=== PATIENT | female | born 1985 | race Caucasian/White ===

== ENCOUNTER 2017-02-12 09:31 | Inpatient (IN) | payer OTHER ==
[2017-02-12] MEDS ORDERED: OXYTOCIN/RINGERS LACTATE 1,000 ML IV PRN (09:39)
[2017-02-12] MEDS ORDERED: EPSOM SALT 454 GM TP PRN (09:39)
[2017-02-12] MEDS ORDERED: TERBUTALINE SULFATE 1 MG/ML VIAL IV PRN (09:39)
[2017-02-12] MEDS ORDERED: LR 1,000 ML IV PRN (09:39)
[2017-02-12] MEDS ORDERED: OLIVE OIL 118 ML BTL MISC PRN (09:39)
[2017-02-12] MEDS ORDERED: AMMONIA AROMATIC 1 EACH AMP IH ONE (09:50)
[2017-02-12] MEDS ORDERED: TERBUTALINE SULFATE 1 MG/ML VIAL ONE (09:50)
[2017-02-12] MEDS ORDERED: LIDOCAINE 1% 300 MG/30 ML SDV ONE (09:50)
[2017-02-12] MEDS ORDERED: OLIVE OIL 118 ML BTL ONE (09:50)
[2017-02-12] MEDS ORDERED: OXYTOCIN 10 UNIT/ML VIAL ONE (09:50)
[2017-02-12] MEDS ORDERED: MISOPROSTOL 200 MCG TAB ONE (09:51)
[2017-02-12] MEDS ORDERED: OXYTOCIN 20 UNIT in LR 1,000 ML IV SCH (10:00)
[2017-02-12 10:21] LABS: % IMMATURE GRANULYOCYTES 0.6 % (0.0-1.1); ABSOLUTE IMMATURE GRANULOCYTES 0.08 10^3/uL (0.00-0.10); ADD DIFF? NO; ADD MORPH? NO; ADD SCAN? NO; ATYPICAL LYMPHOCYTE FLAG 0 (0-99); FRAGMENT RBC FLAG 0 (0-99); HEMATOCRIT 38.9 % (38.0-47.0); HEMOGLOBIN 13.9 g/dL (12.6-16.3); LEFT SHIFT FLG 0 (0-99); LIPEMIA HEMOLYSIS FLAG 90 (0-99); MEAN CELL HEMOGLOBIN 31.3 pg (27.9-34.1); MEAN CELL HEMOGLOBIN CONCENTR. 35.7 g/dL (32.4-36.7); MEAN CELL VOLUME 87.6 fL (81.5-99.8); MEAN PLATELET VOLUME 10.8 fL (8.7-11.7); PLATELET CLUMPS FLAG 10 (0-99); PLATELET COUNT 167 10^3/uL (150-400); RED BLOOD CELL COUNT 4.44 10^6/uL (4.18-5.33); RED CELL DISTRIBUTION WIDTH 13.2 % (11.5-15.2)
--- NOTE | 2017-02-12 11:09 | GHP ---
[f rep st] PREOP HISTORY AND PHYSICAL DATE OF ADMISSION: 02/12/2017 ADMITTING DIAGNOSIS: Intrauterine at 40-4/7 weeks' gestation with active labor. HISTORY OF PRESENT ILLNESS: The patient is a 31-year-old, 1 para 0, with a last menstrual period of 05/04/2016 and an EDC of 02/08/2017, which was set by a 1st trimester ultrasound. She has had good care at [facility] since transfer at 17 weeks and has had normal course. Her risk factors include Rh negative (she is status post RhoGAM), and she has a penicillin allergy that causes hives. She has had normal ultrasounds in this and normal labs in this , and she has progressed to 40-4/7 weeks' gestation. On the evening of the , the patient began having contractions which were increasing in strength and frequency. The morning of the , they became 5 minutes apart and more intense. She presented to labor and delivery and had spontaneous rupture of the membranes at 9:30 for moderate meconium, and she has continued to have regular and strong contractions. On evaluation, heart tones are in the 140s and reactive, moderate variability , category 1. She is dawson every 2-3 minutes. Her cervix is 5, 90% and 0 station, and she is grossly ruptured for moderate meconium. She is going to be admitted in active labor and desires an epidural for pain control. OBSTETRICAL HISTORY: Patient has no past obstetrical history, this is her 1st baby. PAST GYNECOLOGICAL HISTORY: Menarche at 14, every 28 days, length of 4 days. She lists a normal regular last menstrual period as 05/04/2016. She had 1 abnormal Pap years ago and had colpo that was negative; no other treatments on her cervix. She has had oral contraceptive pills and NuvaRing; no other difficulties with contraception. She has no significant past medical history or surgical history. ALLERGIES: Penicillin that causes hives. MEDICATIONS: Include vitamins and DHA. Her most recent hematocrit was 36. She is not anemic. LABORATORY DATA: O negative, antibody negative, RPR nonreactive, rubella immune , hepatitis negative, HIV negative. Cystic fibrosis, SMA, and fragile X negative. Pap normal. Gonorrhea and chlamydia normal. 1-hour GTT 86. GBS was negative. SOCIAL HISTORY: She is . She lives with her . She works in advertising. She denies tobacco, alcohol, and drug use. FAMILY HISTORY: Paternal grandmother had a DVT. Maternal grandfather had adult -onset diabetes. Paternal grandmother had breast cancer. Paternal aunt had breast cancer, as well. Paternal grandfather has Alzheimer's. PHYSICAL EXAMINATION: She is currently afebrile. Vital signs stable. heart tones are 140s, reactive, with moderate variability, category 1. She is dawson every 3-4 minutes. Again, cervix is 5, 90%, 0 station. She is grossly ruptured for moderate meconium. ASSESSMENT AND PLAN: 31-year-old, 1 para 0, at 40-4/7 weeks' gestation in active labor. Patient is admitted for active labor management, and she will get an epidural for pain control. /[id number]/MODL MTDD
[2017-02-12] MEDS ORDERED: PHENYLEPHRINE HCL 100 MCG/ML SYR ONE (11:11)
[2017-02-12] MEDS ORDERED: fentaNYL 2MCG/ML/BUP 0.1% RTU 100 ML BAG EP ONE (11:11)
--- NOTE | 2017-02-12 11:21 | PDANEPAE ---
ANE History of Present Illness 31 yo female at 40+4 in active labor desiring epidural pain control. ANE Past Medical History - Cardiovascular History Hx Hypertension: No Hx Arrhythmias: No Hx Coronary Artery / Peripheral Vascular Disease: No - Pulmonary History Hx COPD: No Hx Asthma/Reactive Airway Disease: Yes Hx Oxygen in Use at Home: No Hx Sleep Apnea: No - Neurologic History Hx Cerebrovascular Accident: No Hx Seizures: No - Endocrine History Hx Diabetes: No - Renal History Hx Renal Disorders: No - Liver History Hx Hepatic Disorders: No ANE Review of Systems Review of Systems: - Exercise capacity METS (RN): 4 METS ANE Patient History - Allergies Allergies/Adverse Reactions: Penicillins Allergy (Verified 02/12/17 09:39) - Home Medications Home medications: home medication list seen and reviewed - NPO status NPO Since - Liquids (Date): 02/12/17 NPO Since - Liquids (Time): 11:15 NPO Since - Solids (Date): 02/12/17 NPO Since - Solids (Time): 08:30 - Anes Hx Anes Hx: no prior problems - Smoking Hx Marijuana use: No - Alcohol Use Alcohol Use: None ANE Labs/Vital Signs - Labs Result Diagrams: 02/12/17 10:12 - Vital Signs Vital Signs: reviewed preoperatively; see RN documention for details Height: 167.64 cm Weight: 76.657 kg ANE Physical Exam - ASA Status ASA Status: II ANE Anesthesia Plan Anesthesia Plan: epidural Urgent/Emergent Case: Anes eval completed preop but documented later for safe timely pt care (Pt felt intense need to push during interview. Re-checked cervix , 8 cm. Proceeding with epidural, pt continued to feel the need to push. Re- checked cervix again, complete and fetus . Stopped epidural procedure and delivered baby.)
[2017-02-12] MEDS ORDERED: ACETAMINOPHEN 325 MG TAB PO PRN (11:58)
[2017-02-12] MEDS ORDERED: HYDROCORTISONE 0.5% CREAM TP PRN (11:58)
[2017-02-12] MEDS ORDERED: DOCUSATE SODIUM 100 MG CAP PO PRN (11:58)
[2017-02-12] MEDS ORDERED: HYDROCODONE/APAP 5/325 TAB PO PRN (11:58)
[2017-02-12] MEDS ORDERED: SIMETHICONE 80 MG TAB CHEW PO PRN (11:58)
--- NOTE | 2017-02-12 12:07 | OBDEL ---
Info Type: Vaginal Presentation at Delivery: Vertex L&D Analgesia/Anesthesia Type: Local (1 % lidocaine) GBS+: No Intrapartum Medications: Generic Name Dose Route Start Last Admin Trade Name Lindy PRN Reason Stop Dose Admin Oxytocin 20 unit/ Lactated 1,002 mls @ 150 mls/hr 02/12/17 10:00 02/12/17 11: 31 Ringer's IV 08/11/17 09:59 1,002 mls CONT FIDEL Administration - Care Provider Service Developer/VETERANS ADVISER: Nicol Velazquez - Hospital Course Intrapartum: 02/12/17 12:03 Pt presented in spontaneous labor and SROM for moderate meconium. Cervix was 5/ 90%/0 station. She quickly progressed and initially desired an epidural, however when Dr Gutierrez was prepared to administer the epidural, pt began having strong urge to push. I checked her cervix and she was completely dilated and + 2 station. She pushed x 20 minutes and had an . Indications for Delivery: Spontaneous Labor Vaginal Delivery - Delivery Provider Delivery Physician/CNM: Kyara Mauricio - Labor and Delivery Onset of Contractions Date: 02/11/17 Onset of Contractions Time: 23:00 Onset of Contractions Type: Spontaneous Rupture of Membranes Date: 02/12/17 Rupture of Membranes Time: 09:32 Rupture of Membranes Type: Spontaneous Amniotic Fluid Color: Thick Meconium Dilation Complete Date: 02/12/17 Dilation Complete Time: 11:12 Placenta Delivery Date: 02/12/17 Placenta Delivery Time: 11:26 Total Hours of Labor: 12 Laceration: 2nd Degree Repair: 2-0, 3-0, Vicryl Vaginal Sponge Count Correct: Yes Vaginal Needle Count Correct: Yes Vaginal Sweep Performed: No EBL: 250 - Medications Labor Augmentation/Induction Methods Used: None [place] Data [place] Delivery Date: 02/12/17 Delivery Time: 11:21 JOSELIN: 02/08/17 Gestational Age: 40 week(s) and 4 day(s) Sex of : Male Score (1 Min): 8 Score (5 Min): 9 ICD10 Worksheet Patient Problems: Problems Problem Status Onset (spontaneous vaginal delivery) Acute - ICD10 Problem Qualifiers (1) (spontaneous vaginal delivery)
[2017-02-12] MEDS: IBUPROFEN 600 MG TAB PO PRN ×2 (12:32→18:33)
[2017-02-13] MEDS: IBUPROFEN 600 MG TAB PO PRN ×3 (00:17→12:03)
[2017-02-13 09:50] VITALS: BP 115/73; PULSE 81; RESP 20; TEMP 98; O2SAT 95
--- NOTE | 2017-02-13 10:57 | OBGCSDC ---
General Delivery Information - General Info : 1 Para: 1 Abortions: 0 Type: Vaginal L&D Analgesia/Anesthesia Type: Local Admission Date: 02/12/17 Labs: Patient ABO/Rh O NEGATIVE 02/12/17 10:12 Hct 38.9 % (38.0-47.0) 02/12/17 10:12 - Hospital Course Intrapartum: 02/12/17 12:03 Pt presented in spontaneous labor and SROM for moderate meconium. Cervix was 5/ 90%/0 station. She quickly progressed and initially desired an epidural, however when Dr Gutierrez was prepared to administer the epidural, pt began having strong urge to push. I checked her cervix and she was completely dilated and + 2 station. She pushed x 20 minutes and had an . : 02/13/17 10:55 PPD#1 doing well. Ambulating. Tolerating pain with PO Ibuprofen only. Minimal lochia. . Desires DC home today if baby can be discharged as well. Exam: VSS NAD Lungs CTAB Heart RRR Abdomen soft, FF below umbilicus Extremities: no edema Hct: 38.9 Vaginal - Delivery Provider Delivery Physician/CNM: Kyara Mauricio - Diagnosis Labor: Spontaneous Rupture of Membranes Type: Spontaneous Amniotic Fluid Color: Thick Meconium Laceration: 2nd Degree Repair: 2-0, 3-0, Vicryl - Delivery EBL: 250 Data Graham Delivery Date: 02/12/17 Delivery Time: 11:21 JOSELIN: 02/08/17 Gestational Age: 40 week(s) and 5 day(s) Sex of : Male [place] Weight (gm): 3758 g Score (1 Min): 8 Score (5 Min): 9 Discharge Information - Discharge Information Condition: Good Instruction/Follow Up: Four Weeks, Six Weeks
== END 2017-02-13 14:20 | disposition home or self-care (01) | DRG 775 ==
LOC: OBSVTOIN 09:31 → FLD 09:31 → FOB 14:34
PROVIDERS: ADMIT Obstetrics & Gynecology; ATTEND Obstetrics & Gynecology
DX: O70.1 Second degree perineal laceration during delivery (principal); Z37.0 Single live birth; Z3A.40 40 weeks gestation of pregnancy
CPT/HCPCS: J2370; J3105

== ENCOUNTER → 2017-02-20 | Outpatient (CLI) | payer OTHER | LOC: FLACT 09:23 | DX: O92.13 Cracked nipple associated with lactation (principal) | CPT/HCPCS: G0463 ==